=== PATIENT | female | born 1995 | race Hispanic/Latino ===

== ENCOUNTER 2019-07-10 13:08 | Emergency (ER) | payer SELFPAY ==
[2019-07-10] MEDS ORDERED: Acetaminophen 500 MG TAB ONE (13:21)
[2019-07-10] MEDS ORDERED: Ibuprofen 200 MG TAB ONE (13:21)
== END 2019-07-10 15:03 | disposition home or self-care (01) ==
LOC: ERS 13:08
DX: J10.1 Influenza due to other identified influenza virus with other respiratory manifestations (principal); I10 Essential (primary) hypertension; Z87.891 Personal history of nicotine dependence
CPT/HCPCS: 87804; 99281